=== PATIENT | male | born 1970 | race Two or more races ===

== ENCOUNTER 2017-12-24 13:23 | Inpatient (IN) | payer OTHER ==
[~2017-12-24] VITALS: Ht 175.3 cm; Wt 181.4 kg
[~2017-12-24 13:23] MED LIST: COZAAR100 MG; DICY10CA; HUMALOG100 UNIT/1; SYNTHROID300 MCG
[2018-01-06] MEDS ORDERED: LOSARTAN POTAS100 MG PO (10:21)
[2018-01-06] MEDS ORDERED: SYNTHROID200 MCG PO (10:21)
[2018-01-06] MEDS ORDERED: DEMADEX20 MG PO (10:22)
== END 2018-01-09 20:38 | disposition home or self-care (01) | DRG 603 ==
LOC: ER 13:23 → MEDI 22:07
PROC: BW40ZZZ Ultrasonography of Abdomen (ICD-10-PCS; principal; 2017-12-28)
PROC: B54BZZZ Ultrasonography of Right Lower Extremity Veins (ICD-10-PCS; 2017-12-28)
DX: L03.116 Cellulitis of left lower limb (principal); N17.8 Other acute kidney failure; L97.518 Non-pressure chronic ulcer of other part of right foot with other specified severity; E66.01 Morbid (severe) obesity due to excess calories; B95.62 Methicillin resistant Staphylococcus aureus infection as the cause of diseases classified elsewhere; I12.9 Hypertensive chronic kidney disease with stage 1 through stage 4 chronic kidney disease, or unspecified chronic kidney disease; N18.3 Chronic kidney disease, stage 3 (moderate); D63.1 Anemia in chronic kidney disease; E11.21 Type 2 diabetes mellitus with diabetic nephropathy; E11.40 Type 2 diabetes mellitus with diabetic neuropathy, unspecified; E03.8 Other specified hypothyroidism; E78.49 Other hyperlipidemia; K80.80 Other cholelithiasis without obstruction; L85.2 Keratosis punctata (palmaris et plantaris)

== ENCOUNTER → 2018-12-15 | Emergency (ER) | payer OTHER ==
[~2018-12-15] VITALS: Ht 175.3 cm; Wt 181.4 kg
[~2018-12-15] MED LIST changes: +DEMADEX20 MG PO; +LOSARTAN POTAS100 MG PO; +SYNTHROID200 MCG PO
== END | disposition left against medical advice (07) ==
LOC: ER 11:51
DX: L03.115 Cellulitis of right lower limb (principal); L97.519 Non-pressure chronic ulcer of other part of right foot with unspecified severity

== ENCOUNTER 2018-12-16 13:02 | Inpatient (IN) | payer OTHER ==
[~2018-12-16] VITALS: Ht 175.3 cm; Wt 181.4 kg
[2019-01-08] MEDS ORDERED: TORSEMIDE20 MG PO (14:56)
== END 2019-03-10 15:38 | disposition home or self-care (01) | DRG 622 ==
LOC: ER 13:02 → MEDJ 12-17 07:44
PROVIDERS: ADMIT Internal Medicine
PROC: 0JBR0ZZ Excision of Left Foot Subcutaneous Tissue and Fascia, Open Approach (ICD-10-PCS; principal; 2018-12-17)
PROC: CP1Z1ZZ Planar Nuclear Medicine Imaging of Musculoskeletal System, All using Technetium 99m (Tc-99m) (ICD-10-PCS; 2018-12-18)
PROC: CP1ZYZZ Planar Nuclear Medicine Imaging of Musculoskeletal System, All using Other Radionuclide (ICD-10-PCS; 2018-12-20)
PROC: BT43ZZZ Ultrasonography of Bilateral Kidneys (ICD-10-PCS; 2018-12-20)
PROC: 30233N1 Transfusion of Nonautologous Red Blood Cells into Peripheral Vein, Percutaneous Approach (ICD-10-PCS; 2019-01-01)
PROC: 3E0F7GC Introduction of Other Therapeutic Substance into Respiratory Tract, Via Natural or Artificial Opening (ICD-10-PCS; 2019-01-03)
PROC: 02HV33Z Insertion of Infusion Device into Superior Vena Cava, Percutaneous Approach (ICD-10-PCS; 2019-01-05)
PROC: B246ZZZ Ultrasonography of Right and Left Heart (ICD-10-PCS; 2019-01-06)
PROC: 05H733Z Insertion of Infusion Device into Right Axillary Vein, Percutaneous Approach (ICD-10-PCS; 2019-01-28)
PROC: 4A033R1 Measurement of Arterial Saturation, Peripheral, Percutaneous Approach (ICD-10-PCS; 2019-01-28)
PROC: B34HZZZ Ultrasonography of Right Upper Extremity Arteries (ICD-10-PCS; 2019-02-02)
PROC: 05H533Z Insertion of Infusion Device into Right Subclavian Vein, Percutaneous Approach (ICD-10-PCS; 2019-02-02)
PROC: BP4NZZZ Ultrasonography of Right Hand (ICD-10-PCS; 2019-02-13)
PROC: 0JBR0ZZ Excision of Left Foot Subcutaneous Tissue and Fascia, Open Approach (ICD-10-PCS; 2019-02-23)
PROC: 8E0ZXY6 Isolation (ICD-10-PCS; 2019-02-26)
DX: E11.621 Type 2 diabetes mellitus with foot ulcer (principal); L89.893 Pressure ulcer of other site, stage 3; L97.528 Non-pressure chronic ulcer of other part of left foot with other specified severity; I31.3 Pericardial effusion (noninflammatory); N39.0 Urinary tract infection, site not specified; B37.49 Other urogenital candidiasis; I83.228 Varicose veins of left lower extremity with both ulcer of other part of lower extremity and inflammation; L97.828 Non-pressure chronic ulcer of other part of left lower leg with other specified severity; L02.612 Cutaneous abscess of left foot; L02.611 Cutaneous abscess of right foot; L02.416 Cutaneous abscess of left lower limb; L03.113 Cellulitis of right upper limb; L03.011 Cellulitis of right finger; B37.2 Candidiasis of skin and nail; B96.1 Klebsiella pneumoniae [K. pneumoniae] as the cause of diseases classified elsewhere; E11.65 Type 2 diabetes mellitus with hyperglycemia; I13.10 Hypertensive heart and chronic kidney disease without heart failure, with stage 1 through stage 4 chronic kidney disease, or unspecified chronic kidney disease; N18.3 Chronic kidney disease, stage 3 (moderate); N17.8 Other acute kidney failure; E66.01 Morbid (severe) obesity due to excess calories; D63.1 Anemia in chronic kidney disease; E03.8 Other specified hypothyroidism; E11.21 Type 2 diabetes mellitus with diabetic nephropathy; N18.4 Chronic kidney disease, stage 4 (severe); F43.22 Adjustment disorder with anxiety; J98.01 Acute bronchospasm; T23.201A Burn of second degree of right hand, unspecified site, initial encounter

== ENCOUNTER 2019-04-09 17:25 | Inpatient (IN) | payer OTHER ==
[~2019-04-09] VITALS: Ht 175.3 cm; Wt 181.8 kg
[~2019-04-09 17:25] MED LIST changes: +TORSEMIDE20 MG PO
[2019-04-09] MEDS ORDERED: CLONAZEPAM0.5 M1 PO (18:10)
[2019-04-09] MEDS ORDERED: DOXAZOSIN MESYLA2 MG PO (18:11)
[2019-04-09] MEDS ORDERED: NORVASC5 MG PO (18:11)
[2019-04-09] MEDS ORDERED: TORSEMIDE10 MG PO (18:12)
[2019-04-09] MEDS ORDERED: AVAPRO150 MG PO (18:12)
[2019-04-09] MEDS ORDERED: APRESOLINE 10MG10 MG PO (18:13)
[2019-04-09] MEDS ORDERED: ENDOCET 5-3251 EACH PO (18:13)
--- NOTE | 2019-04-09 18:13 | NUR ---
PACIENTE MASCULINO ALERTA Y ORIENTADO. REFIERE MALESTAR GENERAL CON FELIX TOS Y SECRECIONES. LOS SINTOMAS ESTAN PRESENTE DESDE HACE VIELKA ELY.
== END 2019-06-21 17:50 | disposition home or self-care (01) | DRG 622 ==
LOC: ER 17:25 → SEC-K 19:15 → MEDJ 19:15 → SURH 06-07 11:48
PROVIDERS: ADMIT Internal Medicine
PROC: 05HY33Z Insertion of Infusion Device into Upper Vein, Percutaneous Approach (ICD-10-PCS; 2019-04-10)
PROC: 8E0ZXY6 Isolation (ICD-10-PCS; 2019-04-10)
PROC: 0JBQ0ZZ Excision of Right Foot Subcutaneous Tissue and Fascia, Open Approach (ICD-10-PCS; principal; 2019-04-12)
PROC: 30243N1 Transfusion of Nonautologous Red Blood Cells into Central Vein, Percutaneous Approach (ICD-10-PCS; 2019-04-12)
PROC: B246ZZZ Ultrasonography of Right and Left Heart (ICD-10-PCS; 2019-04-13)
PROC: 4A12X4Z Monitoring of Cardiac Electrical Activity, External Approach (ICD-10-PCS; 2019-05-03)
PROC: B54CZZZ Ultrasonography of Left Lower Extremity Veins (ICD-10-PCS; 2019-05-12)
DX: E11.621 Type 2 diabetes mellitus with foot ulcer (principal); L89.613 Pressure ulcer of right heel, stage 3; A41.81 Sepsis due to Enterococcus; R65.21 Severe sepsis with septic shock; A41.59 Other Gram-negative sepsis; L97.423 Non-pressure chronic ulcer of left heel and midfoot with necrosis of muscle; L03.115 Cellulitis of right lower limb; B37.41 Candidal cystitis and urethritis; I96 Gangrene, not elsewhere classified; T80.61XA Other serum reaction due to administration of blood and blood products, initial encounter; L03.818 Cellulitis of other sites; R53.83 Other fatigue; M62.81 Muscle weakness (generalized); J98.01 Acute bronchospasm; E66.01 Morbid (severe) obesity due to excess calories; E11.22 Type 2 diabetes mellitus with diabetic chronic kidney disease; E11.21 Type 2 diabetes mellitus with diabetic nephropathy; D63.1 Anemia in chronic kidney disease; I12.9 Hypertensive chronic kidney disease with stage 1 through stage 4 chronic kidney disease, or unspecified chronic kidney disease; B95.2 Enterococcus as the cause of diseases classified elsewhere; I11.9 Hypertensive heart disease without heart failure; B95.61 Methicillin susceptible Staphylococcus aureus infection as the cause of diseases classified elsewhere; B37.2 Candidiasis of skin and nail; E86.0 Dehydration; E87.8 Other disorders of electrolyte and fluid balance, not elsewhere classified; B96.7 Clostridium perfringens [C. perfringens] as the cause of diseases classified elsewhere; E03.8 Other specified hypothyroidism; N18.4 Chronic kidney disease, stage 4 (severe); N17.8 Other acute kidney failure; Z79.4 Long term (current) use of insulin

== ENCOUNTER 2019-09-13 17:44 | Inpatient (IN) | payer OTHER ==
[~2019-09-13] VITALS: Ht 170.2 cm; Wt 181.4 kg
[~2019-09-13 17:44] MED LIST changes: +APRESOLINE 10MG10 MG PO; +AVAPRO150 MG PO; +CLONAZEPAM0.5 M1 PO; +DOXAZOSIN MESYLA2 MG PO; +ENDOCET 5-3251 EACH PO; +NORVASC5 MG PO; +TORSEMIDE10 MG PO
== END 2019-10-02 15:31 | disposition home health service (06) | DRG 264 ==
LOC: ER 17:44 → SEC-K 09-14 11:11 → MEDJ 09-14 11:41 → SURH 09-17 14:12
PROVIDERS: ADMIT Internal Medicine; ATTEND Internal Medicine
PROC: B24BZZZ Ultrasonography of Heart with Aorta (ICD-10-PCS; 2019-09-14)
PROC: 02HV33Z Insertion of Infusion Device into Superior Vena Cava, Percutaneous Approach (ICD-10-PCS; 2019-09-14)
PROC: 3E0F7GC Introduction of Other Therapeutic Substance into Respiratory Tract, Via Natural or Artificial Opening (ICD-10-PCS; 2019-09-14)
PROC: 8E0ZXY6 Isolation (ICD-10-PCS; 2019-09-14)
PROC: 0T9B70Z Drainage of Bladder with Drainage Device, Via Natural or Artificial Opening (ICD-10-PCS; 2019-09-14)
PROC: 4A12X4Z Monitoring of Cardiac Electrical Activity, External Approach (ICD-10-PCS; 2019-09-15)
PROC: 0JBR0ZZ Excision of Left Foot Subcutaneous Tissue and Fascia, Open Approach (ICD-10-PCS; principal; 2019-09-17)
PROC: 0JBQ0ZZ Excision of Right Foot Subcutaneous Tissue and Fascia, Open Approach (ICD-10-PCS; 2019-09-17)
DX: I13.0 Hypertensive heart and chronic kidney disease with heart failure and stage 1 through stage 4 chronic kidney disease, or unspecified chronic kidney disease (principal); I50.33 Acute on chronic diastolic (congestive) heart failure; J18.9 Pneumonia, unspecified organism; N17.8 Other acute kidney failure; J90 Pleural effusion, not elsewhere classified; I31.3 Pericardial effusion (noninflammatory); B37.49 Other urogenital candidiasis; L97.412 Non-pressure chronic ulcer of right heel and midfoot with fat layer exposed; L97.423 Non-pressure chronic ulcer of left heel and midfoot with necrosis of muscle; I08.1 Rheumatic disorders of both mitral and tricuspid valves; N18.3 Chronic kidney disease, stage 3 (moderate); B96.4 Proteus (mirabilis) (morganii) as the cause of diseases classified elsewhere; B95.1 Streptococcus, group B, as the cause of diseases classified elsewhere; D63.1 Anemia in chronic kidney disease; R09.02 Hypoxemia; E66.01 Morbid (severe) obesity due to excess calories; E03.8 Other specified hypothyroidism; E11.621 Type 2 diabetes mellitus with foot ulcer; E11.21 Type 2 diabetes mellitus with diabetic nephropathy; E11.22 Type 2 diabetes mellitus with diabetic chronic kidney disease; Z79.4 Long term (current) use of insulin; Z03.818 Encounter for observation for suspected exposure to other biological agents ruled out; R31.0 Gross hematuria